=== PATIENT | male | born 1980 | race Two or more races ===

== ENCOUNTER 2023-05-02 15:05 | Emergency (ER) | payer OTHER ==
[2023-05-02 15:11] VITALS: RESP 18; TEMP 98.1; BMI 30.7
[2023-05-02 16:57] LABS: BASO % 0.5 % (0-2.0); EOS % 0.3 % (0-4.5); HEMATOCRIT 43.3 % (35.4-49); HEMOGLOBIN 14.6 GM/dL (11.7-16.9); LYMPH % 10.7 % (8-40); MCH 30.4 pg (25.7-33.7); MCHC 33.6 g/dl (32.0-35.9); MEAN CELL VOLUME 90.5 fl (80-96); MEAN PLT VOLUME 6.7 fl (7.5-11.1); MONO % 4.6 % (3.8-10.2); NEUT % 83.9 % (42.8-82.8); PLATELET COUNT 247 10^3/uL (134-434); RBC 4.79 M/mm3 (4.00-5.60); RDW 12.6 % (11.9-15.9); WHITE BLOOD COUNT 10.8 K/mm3 (4.0-10.0)
[2023-05-02 17:01] LABS: EPI CELLS 10 /uL (0-25.1); HYALINE CASTS 0 /uL (0-3.1); URINE APPEARANCE CLEAR; URINE BACTERIA 65 /uL (0-1359); URINE BILIRUBIN NEGATIVE (NEGATIVE); URINE COLOR YELLOW; URINE GLUCOSE (UA) NEGATIVE (NEGATIVE); URINE KETONE NEGATIVE (NEGATIVE); URINE LEUK ESTERASE NEGATIVE (NEGATIVE); URINE NITRITE NEGATIVE (NEGATIVE); URINE PROTEIN NEGATIVE (NEGATIVE); URINE RBC 190 /uL (0-23.9); URINE UROBILINOGEN 0.2 mg/dL (0.2-1.0); URINE WBC 3 /uL (0-25.8)
[2023-05-02 17:17] LABS: POTASSIUM 4.1 mmol/L (3.5-5.1)
[2023-05-02 17:19] LABS: CALCIUM 8.9 mg/dL (8.5-10.1)
[2023-05-02 17:20] LABS: ALBUMIN 4.2 g/dl (3.4-5.0); BLOOD UREA NITROGEN 15.7 mg/dL (7-18)
[2023-05-02 17:23] LABS: CREATININE 0.9 mg/dL (0.55-1.3)
[2023-05-02 17:24] LABS: BILIRUBIN,TOTAL 0.4 mg/dL (0.2-1)
[2023-05-02 17:25] LABS: TOT PROT 7.9 g/dl (6.4-8.2)
[2023-05-02 22:04] VITALS: BP 124/76; PULSE 70
== END 2023-05-02 22:02 | disposition home or self-care (01) ==
LOC: JER 15:05
DX: R10.9 Unspecified abdominal pain (principal); R11.0 Nausea; R39.15 Urgency of urination; R39.11 Hesitancy of micturition
CPT/HCPCS: 36415; 74176-TC; 80053; 81003; 85025; 87077; 87086; 99284-25